=== PATIENT | female | born 1950 | race Caucasian/White ===

== ENCOUNTER 2021-08-05 11:59 | Emergency (ER) | payer MEDICARE ==
[~2021-08-05] VITALS: Ht 147 cm; Wt 62.1 kg
--- NOTE | 2021-08-05 12:16 | ED General ---
General Chief Complaint: General Problems/Pain Stated Complaint: JAW SWELLING Source of Information: Patient Exam Limitations: No Limitations History of Present Illness Date Seen by Provider: August 05, 2021 Time Seen by Provider: 12:06 Initial Comments 71-year-old female with past medical history of hypertension coming in due to right lower jaw swelling. She believes she hit her right lower gums with a metal fork just about a week ago. Swelling started the next day. It is painful, worse with touching it, better with rest. She has taken no medicines for it as of yet. She believes it could be an abscess. She says she has poor dentition, and does not have a lot of teeth left. She denies any fever, chest pain, neck pain, difficulty swallowing, voice changes, shortness of breath, nausea, vomiting, weakness, numbness, headache, vision changes, or any other concerns. Allergies and Home Medications Allergies Coded Allergies: No Known Drug Allergies (Unverified , 08/05/21) Patient Home Medication List Home Medication List Reviewed: Yes Review of Systems Review of Systems Constitutional: No chills, No fever EENTM: No blurred vision Respiratory: no symptoms reported Cardiovascular: no symptoms reported Gastrointestinal: no symptoms reported Genitourinary: no symptoms reported Musculoskeletal: no symptoms reported Skin: no symptoms reported Psychiatric/Neurological: No Symptoms Reported Hematologic/Lymphatic: No Symptoms Reported Immunological/Allergic: no symptoms reported All Other Systems Reviewed Negative Unless Noted: Yes Past Szrjddc-Qsttje-Cyscfs Hx Patient Social History Tobacco Use?: No Substance use?: No Alcohol Use?: No Past Medical History Surgeries: Yes Tonsillectomy Physical Exam Vital Signs Vital Signs - First Documented 08/05/21 12:10 Temp 36.8 Pulse 106 Resp 18 B/P (MAP) 192/109 (136) Pulse Ox 96 O2 Delivery Room Air Capillary Refill : Height, Weight, BMI Height: '" Weight: lbs. oz. kg; BMI Method: General Appearance: No Apparent Distress, WD/WN Eyes: Bilateral Eye Normal Inspection HEENT: PERRL/EOMI, Pharynx Normal, Other (Submandibular swelling and tenderness, tender along the right lower jaw where her molars would be) Neck: Full Range of Motion, Normal Inspection, Non Tender, Supple Respiratory: Chest Non Tender, Lungs Clear, Normal Breath Sounds, No Accessory Muscle Use, No Respiratory Distress Cardiovascular: Regular Rate, Rhythm, No Edema, Normal Peripheral Pulses Gastrointestinal: Normal Bowel Sounds, Non Tender, Soft; No Distended, No Guarding Back: Normal Inspection, No CVA Tenderness, No Vertebral Tenderness Extremity: Normal Capillary Refill, Normal Inspection, Normal Range of Motion, Non Tender, No Calf Tenderness, No Pedal Edema Neurologic/Psychiatric: Alert, No Motor/Sensory Deficits, Normal Mood/Affect Skin: Normal Color, Warm/Dry Lymphatic: No Adenopathy Focused Exam Lactate Level 08/05/21 12:21: Lactic Acid Level 0.78 Lactic Acid Level Laboratory Tests Test 08/05/21 12:21 Lactic Acid Level 0.78 MMOL/L (0.50-2.00) Progress/Results/Core Measures Suspected Sepsis SIRS Temperature: Pulse: Respiratory Rate: Laboratory Tests 08/05/21 12:21: White Blood Count 10.1 Blood Pressure / Mean: 08/05/21 12:21: Lactic Acid Level 0.78 Laboratory Tests 08/05/21 12:21: Creatinine 0.93, Platelet Count 322, Total Bilirubin 0.3 Results/Orders Lab Results Laboratory Tests Test 08/05/21 12:21 Range/Units White Blood Count 10.1 4.3-11.0 10^3/uL Red Blood Count 4.12 3.80-5.11 10^6/uL Hemoglobin 11.8 11.5-16.0 g/dL Hematocrit 35 35-52 % Mean Corpuscular Volume 86 80-99 fL Mean Corpuscular Hemoglobin 29 25-34 pg Mean Corpuscular Hemoglobin Concent 33 32-36 g/dL Red Cell Distribution Width 13.4 10.0-14.5 % Platelet Count 322 130-400 10^3/uL Mean Platelet Volume 9.6 9.0-12.2 fL Immature Granulocyte % (Auto) 0 % Neutrophils (%) (Auto) 73 42-75 % Lymphocytes (%) (Auto) 16 12-44 % Monocytes (%) (Auto) 7 0-12 % Eosinophils (%) (Auto) 3 0-10 % Basophils (%) (Auto) 1 0-10 % Neutrophils # (Auto) 7.4 1.8-7.8 10^3/uL Lymphocytes # (Auto) 1.7 1.0-4.0 10^3/uL Monocytes # (Auto) 0.7 0.0-1.0 10^3/uL Eosinophils # (Auto) 0.3 0.0-0.3 10^3/uL Basophils # (Auto) 0.1 0.0-0.1 10^3/uL Immature Granulocyte # (Auto) 0.0 0.0-0.1 10^3/uL Sodium Level 140 135-145 MMOL/L Potassium Level 4.1 3.6-5.0 MMOL/L Chloride Level 105 98-107 MMOL/L Carbon Dioxide Level 21 21-32 MMOL/L Anion Gap 14 5-14 MMOL/L Blood Urea Nitrogen 19 H 7-18 MG/DL Creatinine 0.93 0.60-1.30 MG/DL Estimat Glomerular Filtration Rate 66 BUN/Creatinine Ratio 20 Glucose Level 96 70-105 MG/DL Lactic Acid Level 0.78 0.50-2.00 MMOL/L Calcium Level 9.9 8.5-10.1 MG/DL Corrected Calcium 10.0 8.5-10.1 MG/DL Total Bilirubin 0.3 0.1-1.0 MG/DL Aspartate Amino Transf (AST/SGOT) 18 5-34 U/L Alanine Aminotransferase (ALT/SGPT) 9 0-55 U/L Alkaline Phosphatase 123 40-136 U/L C-Reactive Protein 4.43 H <0.50 MG/DL Total Protein 8.0 6.4-8.2 GM/DL Albumin 3.9 3.2-4.5 GM/DL My Orders Orders - MARY DOMINGUEZ MD Cbc With Automated Diff (08/05/21 12:16) Comprehensive Metabolic Panel (08/05/21 12:16) Lactic Acid Analyzer (08/05/21 12:16) Crp Fs (08/05/21 12:16) Ct Neck (Soft Tissue) W (08/05/21 12:16) Ed Iv/Invasive Line Start (08/05/21 12:16) Ns Iv 1000 Ml (Sodium Chloride 0.9%) (08/05/21 12:30) Ampicillin/Sulbactam Injection (Unasyn 3 (08/05/21 12:30) Ibuprofen Tablet (Motrin Tablet) (08/05/21 12:30) Iohexol Injection (Omnipaque 350 Mg/Ml 1 (08/05/21 13:00) Received Contrast (Hold Metformin- Contr (08/05/21 13:00) Ns (Ivpb) (Sodium Chloride 0.9% Ivpb Bag (08/05/21 13:00) Medications Given in ED Current Medications Medications Dose Ordered Sig/Sarah Route Start Time Stop Time Status Last Admin Dose Admin Ampicillin Sodium/ Sulbactam Sodium 3 gm/Sodium Chloride 100 ml @ 200 mls/hr ONCE ONCE IV 08/05/21 12:30 08/05/21 12:59 DC 08/05/21 12:24 200 MLS/HR Ibuprofen 400 mg ONCE ONCE PO 08/05/21 12:30 08/05/21 12:31 DC 08/05/21 12:24 400 MG Iohexol 100 ml ONCE ONCE IV 08/05/21 13:00 08/05/21 13:01 DC 08/05/21 13:18 75 ML Sodium Chloride 100 ml ONCE ONCE IV 08/05/21 13:00 08/05/21 13:01 DC 08/05/21 13:18 100 ML Vital Signs/I&O 08/05/21 12:10 Temp 36.8 Pulse 106 Resp 18 B/P (MAP) 192/109 (136) Pulse Ox 96 O2 Delivery Room Air Capillary Refill : Progress Note : Progress Note 71-year-old female with above history coming in due to right lower jaw swelling. ABCs were intact and vitals were stable on presentation. Physical exam was significant amount of swelling under her jaw, firm. No trismus, no airway compromise on exam. She is tolerating her secretions. CT soft tissue neck with contrast ordered given in her mouth, I am able to palpate any obvious abscess that leads to this. Additionally she does not have any molars left, they have all been pulled making this less likely odontogenic. CT concerning for subman dibular mass that is just under 4 cm. They favor mass over abscess. Radiology recommended specialty ENT consultation. We unfortunately have nobody numerical control programmer today that is available to take care of this patient. I contacted over the the [facility] access, the patient will be transferred to [facility] after discussing the case with their ENT, Dr. Bray. I did give her a dose of IV Unasyn as well as IV fluids and the chance this was infectious. Update 17:22, patient has been unable to be transported as of yet since there were other more critical patients that needed EMS services for transport out of this facility first. Diagnostic Imaging Diagonstic Imaging: CT (soft tissue neck) Comments NAME: HILDA RIBEIRO [facility] REC#: [id number] PT STATUS: REG ER : 1950 PHYSICIAN: MARY DOMINGUEZ MD ADMIT DATE: 08/05/21/ER FS Draft Date of Exam:08/05/21 CT NECK (SOFT TISSUE) W CLINICAL INDICATION: Patient with right neck mass x1 week. EXAM: Axial CT scan of the neck soft tissue performed with 75 mL of Omnipaque 350 IV contrast. Sagittal and coronal reformatted images are created. Auto Exposure Controls were utilized during the CT exam to meet ALARA standards for radiation dose reduction. COMPARISON: None. FINDINGS: There is a 2.8 cm x 3.4 cm x 2.1 cm (AP x Trans x CC) heterogeneous enhancing mass in the right submandibular region, which demonstrates central cystic changes. There is slight ill-defined appearance of the border with mild adjacent fat stranding. This mass either involves or closely abuts the anterosuperior aspect of the right submandibular gland. It is difficult to determine if this mass arises from the right submandibular gland or represents an abnormal lymph node. This mass abuts the undersurface of the anterior right mandibular body. There is bony sclerosis and thickening involving the adjacent bony right mandibular body region. There is also a localized focal defect measuring 3 mm involving the inferior cortex, which is in the region of this mass. There is note of erosive changes about the adjacent mandibular right molar tooth and significant dental caries involving this tooth. There is elongated ossification of the stylohyoid ligament measuring at least 3 cm in length, which may be seen with Circle's syndrome. Visualized portions of the oral cavity, tongue, and sublingual regions show no significant abnormality. The remainder of the salivary glands are unremarkable. Thyroid gland is unremarkable. There is mild asymmetry of the supraglottic larynx with slight prominent right-sided internal laryngocele. Visualized upper lung peoples are clear. There are cervical spine degenerative spurs and multilevel loss of disc space height at the C4 through C7 levels. Limited visualization of the intracranial structures is unremarkable. Paranasal sinuses and mastoid air cells are clear. IMPRESSION: 1: There is a 3.4 cm heterogeneous enhancing mass in the right submandibular region with central cystic changes. This lesion is within or closely abuts the right submandibular gland. The adjacent right mandibular body demonstrates cortical thickening and sclerosis, and there is a focal cortical defect involving the inferior aspect of the right mandible adjacent to this mass. There is note of erosive changes about the adjacent mandibular right molar tooth and significant dental caries involving this tooth. Given the adjacent tooth findings, superimposed infectious or inflammatory process may be considered. Given the thickened enhancement and configuration of the right submandibular mass, an abscess is suspected to be less likely, and a mass should be excluded. Considerations may include a malignant lymph node or primary salivary gland malignancy. ENT consultation is suggested. 2: There is no other mass or lymphadenopathy seen on this exam. 3: There is elongated ossification of the bilateral stylohyoid ligaments, which may be seen with Circle's syndrome. Dictated on workstation # [id number] Dict: 08/05/21 1322 Trans: 08/05/21 1348 [id number] Interpreted by: JAYA DINH MD Electronically signed by: Departure Impression Primary Impression: Mass of submandibular region Disposition: XFER SHT-TRM HOSP Condition: Stable Admissions Decision to Admit/Date: August 05, 2021 Time/Decision to Admit Time: 14:15 Transfer Transfer Reason: Exceeds level of care Time Spoke to Accepting Phy: 14:20 Transfer Progress Notes Talked with ENT, Dr. Tubbs followed by Angela Monroy who accepted on behalf of Dr. Holt. Transfer Facility: [facility] Method of Transfer: EMS Departure-Patient Inst. Referrals: KYRA KEMP DO (PCP) Primary Care Physician MARY DOMINGUEZ MD August 05, 2021 12:16
[2021-08-05 12:24] LABS: BASOPHILS # (AUTO) 0.1 10^3/uL (0.0-0.1); BASOPHILS % (AUTO) 1 % (0-10); EOSINOPHILS # (AUTO) 0.3 10^3/uL (0.0-0.3); EOSINOPHILS % (AUTO) 3 % (0-10); HEMATOCRIT 35 % (35-52); HEMOGLOBIN 11.8 g/dL (11.5-16.0); LYMPHOCYTES # (AUTO) 1.7 10^3/uL (1.0-4.0); LYMPHOCYTES % (AUTO) 16 % (12-44); MEAN CORPUSCULAR HEMOGLOBIN 29 pg (25-34); MEAN CORPUSCULAR HGB CONC 33 g/dL (32-36); MEAN CORPUSCULAR VOLUME 86 fL (80-99); MEAN PLATELET VOLUME 9.6 fL (9.0-12.2); MONOCYTES # (AUTO) 0.7 10^3/uL (0.0-1.0); MONOCYTES % (AUTO) 7 % (0-12); NEUTROPHILS # (AUTO) 7.4 10^3/uL (1.8-7.8); NEUTROPHILS % (AUTO) 73 % (42-75); PLATELET COUNT 322 10^3/uL (130-400); WHITE BLOOD COUNT 10.1 10^3/uL (4.3-11.0)
[2021-08-05] MEDS ORDERED: NS IV 1000 ML 1,000 ML IV SCH (12:30)
[2021-08-05] MEDS ORDERED: AMPICILLIN/SULBACTAM INJECTION 3 GM in NS (IVPB) 100 ML IV ONE (12:30)
[2021-08-05] MEDS ORDERED: IBUPROFEN TABLET 200 MG TAB PO ONE (12:30)
[2021-08-05 12:44] LABS: POTASSIUM 4.1 MMOL/L (3.6-5.0)
[2021-08-05 12:45] LABS: ALBUMIN 3.9 GM/DL (3.2-4.5); BILIRUBIN,TOTAL 0.3 MG/DL (0.1-1.0); CALCIUM 9.9 MG/DL (8.5-10.1); CREATININE SERUM 0.93 MG/DL (0.60-1.30)
[2021-08-05] MEDS ORDERED: NS 100 ML (IVPB) BAG IV ONE (13:00)
[2021-08-05] MEDS ORDERED: HOLD METFORMIN - RECEIVED CONTRAST 20 ML VIAL IV SCH (13:00)
[2021-08-05] MEDS ORDERED: IOHEXOL 350 MG/ML 100 ML (OMNIPAQUE 350) VIAL IV ONE (13:00)
--- NOTE | 2021-08-05 13:49 | Diagnostic Imaging Report ---
CLINICAL INDICATION: Patient with right neck mass x1 week. EXAM: Axial CT scan of the neck soft tissue performed with 75 mL of Omnipaque 350 IV contrast. Sagittal and coronal reformatted images are created. Auto Exposure Controls were utilized during the CT exam to meet ALARA standards for radiation dose reduction. COMPARISON: None. FINDINGS: There is a 2.8 cm x 3.4 cm x 2.1 cm (AP x Trans x CC) heterogeneous enhancing mass in the right submandibular region, which demonstrates central cystic changes. There is slight ill-defined appearance of the border with mild adjacent fat stranding. This mass either involves or closely abuts the anterosuperior aspect of the right submandibular gland. It is difficult to determine if this mass arises from the right submandibular gland or represents an abnormal lymph node. This mass abuts the undersurface of the anterior right mandibular body. There is bony sclerosis and thickening involving the adjacent bony right mandibular body region. There is also a localized focal defect measuring 3 mm involving the inferior cortex, which is in the region of this mass. There is note of erosive changes about the adjacent mandibular right molar tooth and significant dental caries involving this tooth. There is elongated ossification of the stylohyoid ligament measuring at least 3 cm in length, which may be seen with [place]'s syndrome. Visualized portions of the oral cavity, tongue, and sublingual regions show no significant abnormality. The remainder of the salivary glands are unremarkable. Thyroid gland is unremarkable. There is mild asymmetry of the supraglottic larynx with slight prominent right-sided internal laryngocele. Visualized upper lung peoples are clear. There are cervical spine degenerative spurs and multilevel loss of disc space height at the C4 through C7 levels. Limited visualization of the intracranial structures is unremarkable. Paranasal sinuses and mastoid air cells are clear. IMPRESSION: 1: There is a 3.4 cm heterogeneous enhancing mass in the right submandibular region with central cystic changes. This lesion is within or closely abuts the right submandibular gland. The adjacent right mandibular body demonstrates cortical thickening and sclerosis, and there is a focal cortical defect involving the inferior aspect of the right mandible adjacent to this mass. There is note of erosive changes about the adjacent mandibular right molar tooth and significant dental caries involving this tooth. Given the adjacent tooth findings, superimposed infectious or inflammatory process may be considered. Given the thickened enhancement and configuration of the right submandibular mass, an abscess is suspected to be less likely, and a mass should be excluded. Considerations may include a malignant lymph node or primary salivary gland malignancy. ENT consultation is suggested. 2: There is no other mass or lymphadenopathy seen on this exam. 3: There is elongated ossification of the bilateral stylohyoid ligaments, which may be seen with [place]'s syndrome. Dictated by: Dictated on workstation # [id number]
[2021-08-05 18:47] VITALS: BP 154/81
== END 2021-08-05 19:45 | disposition short-term general hospital (02) ==
LOC: EDUNIT# 11:59 → ER FS 12:01
DX: R22.1 Localized swelling, mass and lump, neck (principal)
CPT/HCPCS: 36415; 70491; 80053; 83605; 85025; 86141; 96374; Q9967